=== PATIENT | male | born 1940 | race African-American/Black ===

== ENCOUNTER 2019-01-15 10:09 | Day surgery (SDC) | payer OTHER | END 2019-01-15 13:27 | LOC: FASU-ENDO 10:09 ==

== ENCOUNTER 2019-03-19 09:50 | Day surgery (SDC) | payer OTHER ==
[2019-03-17 11:08] VITALS: BMI 31.6
[2019-03-19] MEDS ORDERED: MIDAZOLAM HCL 2 MG/2 ML SINGLE DOSE VIAL ONE (15:02)
[2019-03-19 17:18] VITALS: BP 110/78; PULSE 82; TEMP 98
--- NOTE | 2019-03-21 18:22 | PATH ---
Surgical Pathology Report Patient Name: NARCISO SOTO [facility]. Rec. #: [id number] /Age/Gender: 1940 (Age: 78) / M Account: [id number] Location: [facility] Taken: 03/19/2019 Received: 03/19/2019 Reported: 03/21/2019 Physicians: Melissa Craig M.D. Specimen(s) Received POLYPECTOMY TRANSVERSE COLON Clinical History Screening Postoperative diagnosis: Colon polyps, hemorrhoids, diverticulosis Final Diagnosis TRANSVERSE COLON, POLYPECTOMY: TUBULAR ADENOMA. Electronically Signed Melissa Mckee M.D. Gross Description Received in formalin labeled "polypectomy transverse colon," is a 1.0 x 0.9 x 0.5 cm sprague, polypoid portion of soft tissue. The specimen is bisected and entirely submitted in one cassette. /03/20/2019 saudi03/20/2019
== END 2019-03-19 16:50 ==
LOC: FASU-ENDO 09:50
PROVIDERS: ATTEND Internal Medicine Gastroenterology
PROC: 0DBL8ZX Excision of Transverse Colon, Via Natural or Artificial Opening Endoscopic, Diagnostic (ICD-10-PCS; 2019-03-19)
PROC: 0DBN8ZX Excision of Sigmoid Colon, Via Natural or Artificial Opening Endoscopic, Diagnostic (ICD-10-PCS; principal; 2019-03-19 15:08)
DX: Z12.11 Encounter for screening for malignant neoplasm of colon (principal); D12.3 Benign neoplasm of transverse colon; K57.30 Diverticulosis of large intestine without perforation or abscess without bleeding; K64.8 Other hemorrhoids
CPT/HCPCS: 88305-TC